=== PATIENT | male | born 1960 | race Caucasian/White ===

== ENCOUNTER 2018-07-28 11:14 | Emergency (ER) | payer OTHER ==
--- NOTE | 2018-07-28 12:05 | RAD ---
FIFTH FINGER RIGHT HAND 3 VIEWS: Date: 07/28/18 HISTORY: Injury. FINDINGS: There are degenerative changes a PIP and DIP joints. Lateral view shows fracture of the base of the distal phalanx. Lateral view also shows a chip fractur e seen dorsally at the PIP joint, presumably from the proximal aspects of the middle phalanx at the P IP joint. This is suboptimally evaluated on the lateral view due to overlying structures. IMPRESSION: Fractures of the base of both middle phalanx and distal phalanx of the fifth finger. POS: MALICK
== END 2018-07-28 12:20 | disposition home or self-care (01) ==
LOC: ERS 11:14
DX: S62.636A Displaced fracture of distal phalanx of right little finger, initial encounter for closed fracture (principal); S62.626A Displaced fracture of middle phalanx of right little finger, initial encounter for closed fracture; I10 Essential (primary) hypertension; F17.210 Nicotine dependence, cigarettes, uncomplicated; Z79.899 Other long term (current) drug therapy; W19.XXXA Unspecified fall, initial encounter
CPT/HCPCS: 26720; 26750